=== PATIENT | male | born 1955 | race Caucasian/White ===

== ENCOUNTER → 2023-05-27 13:24 | Outpatient (BNVA) | payer MEDICARE, SELFPAY | PROVIDERS: PCP Family Medicine; Visit Provider Surgery | DX: K40.90 Unilateral inguinal hernia, without obstruction or gangrene, not specified as recurrent (principal) | CPT/HCPCS: 99203 ==

== ENCOUNTER 2023-07-07 05:29 | Day surgery (SDC) | payer MEDICARE, SELFPAY ==
[2023-07-04 13:00] VITALS: BMI 26.4
[2023-07-07] VITALS (10 sets, daily range): BP systolic 127–165; BP diastolic 74–100; PULSE 59–74; RESP 15–23; TEMP 36.6–37.2; O2SAT 95–100
--- NOTE | 2023-07-07 06:00 | ECG_ITS ---
[facility] Test Date: 2023-07-07 Pat Name: Farzad Herron Department: Room: Gender: Male [employer]: : 1955 Requested By: Cesario Vogt Order Number: [id number] Jose Antonio MD: Farhan Lucas M.D. Measurements Intervals [place] Rate: 67 P: 56 KS: 169 QRS: 23 QRSD: 90 T: 72 QT: 374 QTc: 397 Interpretive Statements SINUS RHYTHM No previous ECG available for comparison Electronically Signed On 07-07-2023 8:22:27 CDT by Farhan Lucas M.D. [id number]
[2023-07-07] MEDS: sodium chloride 0.9% 1,000 ML 30 ML IV (06:19)
--- NOTE | 2023-07-07 06:55 | PM.HP ---
Providers/Chief Complaint Primary Care Provider: Chela Hayes MD Chief Complaint: K40.90 History of Present Illness Farzad Herron is a 67 year old male Review of Systems General: Reports: 10 or more systems reviewed and unremarkable except in HPI and below Medications/Allergies Home Medications Medication Instructions Recorded Confirmed Last Taken Type No Known Home Medications 04/20/23 05/27/23 Unknown History Allergies Allergy/AdvReac Type Severity Reaction Status Date / Time No Known Allergies Allergy Verified 07/04/23 13:00 PFSH Acute PFSH: Medical History Right inguinal hernia Smoker Surgical History History of tonsillectomy Family History Other Cancer Diabetes Hyperlipidemia Hypertension Social History Smoking and tobacco status: current every day smoker Vitals/I&O/Wt Last Vital Signs Temp 98.9 F 07/07/23 06:10 Pulse 68 07/07/23 06:10 Resp 18 07/07/23 06:10 BP 165/100 07/07/23 06:10 Pulse Ox 100 07/07/23 06:10 O2 Del Method Room Air 07/07/23 06:13 A&P Assessment and plan (1) Right inguinal hernia: Plan Laparoscopic repair of right and will hernia with mesh Attestations Medical Necessity Statement*: Home Coding Level of Care Code Acute Code for Chg Fwd Diagnoses Right inguinal hernia K40.90
--- NOTE | 2023-07-07 06:58 | ANES.PREANE2 ---
Pre-Anesthetic Assessment Height/Weight: Height 1.78 m Weight 83.461 kg Temp Pulse Resp BP Pulse Ox O2 Del Method 98.9 F 68 18 165/100 100 Room Air 07/07/23 06:10 07/07/23 06:10 07/07/23 06:10 07/07/23 06:10 07/07/23 06:10 07/07/23 06:13 Operation Date: 07/07/23 07:00 Proposed Procedures p [id number] lap right inguinal hernia repair with mesh K40.90(Right) - Noah Guido DO Familial anesthetic complications: None Was Beta Ksenia taken within 24 hours: N/A Was Clonidine taken within 24 hours: N/A Last intake: Intake Last Liquid Date 07/06/23 Last Liquid Time 22:00 Last Solid Date 07/06/23 Last Solid Time 19:00 Social Alcohol and Tobacco Exam alert, oriented x 3, clear to auscultation bilaterally and regular rate & rhythm Airway Mallampati: Class II Dentition: other (dentures) Comments: Comments: hazel History/ROS No significant complaints Anesthetic Plan ASA status: 1 Anesthesia: General Risk of > 500 ml blood loss (7ml/kg in children): No Medications/Allergies Home Medications Medication Instructions Recorded Confirmed Last Taken Type No Known Home Medications 04/20/23 05/27/23 Unknown History Allergies Allergy/AdvReac Type Severity Reaction Status Date / Time No Known Allergies Allergy Verified 07/04/23 13:00 Current Medications Generic Name Dose Route Start Last Admin Trade Name Freq PRN Reason Stop Dose Admin Sodium Chloride 1,000 mls @ 30 mls/hr 07/07/23 06:00 07/07/23 06:19 Sodium Chloride 0.9% IV 07/08/23 05:59 30 mls/hr .Q24H GARCIA Administration PFSH Anesthesia Medical History Right inguinal hernia Smoker Surgical History History of tonsillectomy Family History Other Cancer Diabetes Hyperlipidemia Hypertension Social History Smoking and tobacco status: current every day smoker Data Anesthesia Cardiac Studies: No Data to Display
[2023-07-07] MEDS: ceFAZolin 2,000 MG in sodium chloride 0.9% (plus) 50 ML 100 MG IV (07:02)
[2023-07-07] MEDS: lidocaine-epi 2% 20 mL INJ INJECTION (07:25)
--- NOTE | 2023-07-07 07:52 | PM.OP ---
Operative Report Date of procedure: July 07, 2023 Pre-op diagnosis: Right inguinal hernia Post-op diagnosis: Indirect right inguinal hernia Procedure done: Laparoscopic (TEPP) repair of right inguinal hernia with mesh Implants: Extra-large right 3D max Bard mesh Specimens removed/disposition: None Surgeon: Noah Guido DO Anesthesia: General Estimated blood loss (mL): 5 Complications: None apparent Brief History: This very pleasant 67-year-old gentleman who presented my office with a right inguinal hernia. Laparoscopic repair with mesh was indicated. The risk and benefits were explained and documented. Procedure: Patient was wheeled into the operative room and placed on the OR table in a supine position. Abdomen was inspected prepped and draped in usual sterile fashion. Time-out was performed and all present were in agreement. A 15 blade scalpel was used to make 1.2 centimeter incision infraumbilically. Combination of sharp and blunt dissection was performed down to the anterior rectus sheath which was opened sharply. The dissecting balloon was then inserted into the space of Retzius and blown up. We put the camera into the port and identified that we were in the correct space. I then placed 2 5 millimeter trocars suprapubically in the midline. I then used endokitners to bluntly dissect in the space of Retzius out laterally. An indirect inguinal hernia was identified on the right. Blunt dissection was performed to dissect down the hernia sac until the vas deferens dove medially. An extralarge right inguinal mesh was then placed into the space of Retzius. The mesh was unrolled and tacked once medially at the pubic bone. The mesh laid out nicely over the spermatic cord. Photos were taken of the mesh laid out and the hernia sac laid underneath the mesh. I watched the hernia sac remained in place as insufflation was removed. Incisions were closed with 4-0 Monocryl in a subcuticular interrupted fashion. Skin glue was applied. Patient tolerated the procedure well.
--- NOTE | 2023-07-07 09:00 | ANE.PACU2 ---
Inpatient post-anesthesia follow up: Airway intact: Yes Vital signs: Temperature 97.9 F Pulse Rate 59 Respiratory Rate 17 Blood Pressure 127/81 Pulse Oximetry 95 Oxygen Delivery Me thod Room Air Oxygen Flow Rate Fraction of Inspir ed Oxygen Hydration adequate: Yes Nausea and vomiting: No Pain level: 1 Mental status: Baseline
== END 2023-07-07 09:00 | disposition home or self-care (01) ==
PROVIDERS: PCP Family Medicine; Visit Provider Surgery
PROC: (CPT 49650; principal; 2023-07-07 07:00)
DX: K40.90 Unilateral inguinal hernia, without obstruction or gangrene, not specified as recurrent (principal); F17.200 Nicotine dependence, unspecified, uncomplicated
CPT/HCPCS: 49650; 51702; 93005; C1781; J0690; J1170; J1885; J2704; J2710; J3010; J7030